=== PATIENT | female | born 1985 | race Caucasian/White ===

== ENCOUNTER 2017-08-05 21:36 | Emergency (ER) | payer BC ==
[2017-08-05 21:45] VITALS: BP 134/88; PULSE 74; TEMP 97.9; BMI 26.9
[2017-08-05 21:56] LABS: URINE APPEARANCE Clear; URINE BILIRUBIN Negative (NEGATIVE); URINE GLUCOSE (UA) Negative (NEGATIVE); URINE KETONE Trace (NEGATIVE); URINE LEUK ESTERASE Negative (NEGATIVE); URINE NITRITE Negative (NEGATIVE); URINE PROTEIN Negative (NEGATIVE); URINE UROBILINOGEN 0.2 (0.2-1.0)
[2017-08-05 22:00] LABS: URINE COLOR YELLOW
[2017-08-05 22:06] LABS: HCG,QUALITATIVE URINE Negative
--- NOTE | 2017-08-05 22:28 | PDOC ---
History of Present Illness - General Chief Complaint: Back Pain Stated Complaint: RIGHT BACK PAIN, COLD SYMPTOMS Time Seen by Provider: 08/05/17 22:11 - History of Present Illness Initial Comments: This otherwise healthy 32-year-old woman presents with a several day history of upper respiratory symptoms (nasal congestion/rhinorrhea) with some upper facial discomfort progressing to nonproductive productive cough in the last few days. MAXIMUM TEMPERATURE 102 F (yesterday) Patient also has pain, worsened with coughing and deep breathing in the right posterior lower chest area. She has not had any wheezing but intermittently feels short of breath. Patient has no history of asthma but states that she has intermittent bronchitis. She is not been prescribed an inhaler but occasionally uses her son's nebulizer as needed. Patient is a smoker (she states she also works in a [employer] and frequently exposed to toxic fumes (for example, formaldehyde) Past History - Past Medical History Allergies/Adverse Reactions: Allergies Allergy/AdvReac Type Severity Reaction Status Date / Time No Known Allergies Allergy Verified 12/03/11 09:57 Home Medications: Ambulatory Orders Albuterol Sulfate Inhaler - [Ventolin HFA Inhaler -] 2 inh PO Q6H PRN #1 inh Azithromycin 250 mg PO DAILY #4 tablet 08/05/17 Naproxen Sodium [Aleve] 440 mg PO ONCE PRN 08/05/17 Asthma: No Cancer: No Cardiac Disorders: No COPD: No Diabetes: No HTN: No Seizures: No Thyroid Disease: Yes - Suicide/Smoking/Psychosocial Hx Smoking Status: No Smoking History: Current every day smoker Number of Cigarettes Smoked Daily: 20 Information on smoking cessation initiated: Yes Hx Alcohol Use: No Drug/Substance Use Hx: No Substance Use Type: None Hx Substance Use Treatment: No Review of Systems - Review of Systems Able to Perform ROS?: Yes Comments:: 12 point review of systems is negative except for what is noted in the history of present illness *Physical Exam - Vital Signs Last Vital Signs Temp Pulse Resp BP Pulse Ox 97.9 F 74 16 134/88 100 08/05/17 21:37 08/05/17 21:37 08/05/17 21:37 08/05/17 21:37 08/05/17 21:37 - Physical Exam Comments: GENERAL: Adult female, alert and oriented 3, speaking in full sentences, in no acute respiratory distress HEAD: Normal with no signs of trauma. EYES: PERRLA, EOMI, sclera anicteric, conjunctiva clear. ENT: Ears normal, nares patent, oropharynx clear without exudates. Moist mucous membranes. NECK: Normal range of motion, supple without lymphadenopathy, JVD, or masses. LUNGS: Breath sounds equal, clear to auscultation bilaterally. No wheezes, and no crackles. HEART:Regular rate and rhythm, normal S1 and S2 without murmur, rub or gallop. ABDOMEN:.normal bowel sounds No guarding,tenderness or rebound.No masses No distention. EXTREMITIES: Normal range of motion, no edema. No clubbing or cyanosis. No erythema, or tenderness. NEUROLOGICAL: Cranial nerves II through XII grossly intact. Normal speech. No focal neurological deficits. MUSCULOSKELETAL: Back non-tender to palpation, no CVA tenderness SKIN: Warm, Dry, normal turgor, no rashes or lesions noted. ED Treatment Course - ADDITIONAL ORDERS Additional order review: Laboratory Results 08/05/17 21:50 Urine Color Yellow Urine Appearance Clear Urine pH 6.0 Ur Specific [place] 1.025 Urine Protein Negative Urine Glucose (UA) Negative Urine Ketones Trace Urine Blood Negative Urine Nitrite Negative Urine Bilirubin Negative Urine Urobilinogen 0.2 Ur Leukocyte Esterase Negative Urine HCG, Qual Negative Medical Decision Making - Medical Decision Making Although this 32-year-old woman, smoker and exposed to noxious fumes in workplace, presents with nonproductive cough and fever. Although her lungs were clear on auscultation, because of her subjective feeling of shortness of breath, DuoNeb treatment was ordered. Patient reports significant relief in her symptoms of shortness of breath/chest congestion after DuoNeb treatment. Prescription for albuterol inhaler to be used as needed will be sent with patient. She will be started on azithromycin ( Z-Javan) course with first dose of 500 mg orally given here. Meanwhile, the patient will not be working for the next 2 days. She should use a mask when exposed to toxic fumes such as formaldehyde. Should follow-up with her doctor within the next week and return here if she has wheezing/shortness of breath that is persistent. *DC/Admit/Observation/Transfer Diagnosis at time of Disposition: Acute bronchitis Qualifiers: Bronchitis organism: unspecified organism Qualified Code(s): J20.9 - Acute bronchitis, unspecified - Discharge Dispostion Disposition: HOME Condition at time of disposition: Stable - Prescriptions Prescriptions: Albuterol Sulfate Inhaler - [Ventolin HFA Inhaler -] 2 inh PO Q6H PRN #1 inh PRN Reason: Wheezing Azithromycin 250 mg PO DAILY #4 tablet - Referrals Referrals: Bobo Cooper MD [Primary Care Provider] - - Patient Instructions Printed Discharge Instructions: Acute Bronchitis Additional Instructions: Azithromycin 250 mg daily for 4 days, starting tomorrow Albuterol inhaler 2 puffs up to 4 times a day as needed for wheezing or shortness of breath Drink plenty of fluids; rest Avoid smoking Use mask at work when dealing with toxic fumes Return to ER if you have persistent shortness of breath/wheezing or high fever Follow-up with your general doctor within the next 5-7 days - Post Discharge Activity
[2017-08-05] MEDS ORDERED: ALBUTEROL SO4 2.5/IPRATROPIUM 0.5 INH SOL 3 ML VIAL.NEB. NEB ONE ×2 (22:35→22:44)
[2017-08-05] MEDS ORDERED: AZITHROMYCIN 250 MG TABLET PO ONE (23:04)
[2017-08-05] MEDS ORDERED: AZITHROMYCIN 250 MG TABLET ONE (23:13)
== END 2017-08-05 23:16 | disposition home or self-care (01) ==
LOC: FER 21:36
PROC: 3E0F7GC Introduction of Other Therapeutic Substance into Respiratory Tract, Via Natural or Artificial Opening (ICD-10-PCS; principal; 2017-08-05)
DX: J20.9 Acute bronchitis, unspecified (principal)
CPT/HCPCS: 81003; 84703; 99282-25; J7620